=== PATIENT | female | born 1990 | race Caucasian/White ===

== ENCOUNTER 2019-12-03 14:54 | Emergency (ER) | payer OTHER ==
[~2019-12-03] VITALS: Ht 160 cm; Wt 105.7 kg
[2019-12-03 15:39] VITALS: Ht 160 cm; Wt 105.7 kg
[2019-12-03 17:39] VITALS: BP 124/75
== END 2019-12-03 17:39 | disposition home or self-care (01) ==
LOC: ED 14:54
DX: J10.1 Influenza due to other identified influenza virus with other respiratory manifestations (principal)
CPT/HCPCS: 87804; J1100; J1885